=== PATIENT | female | born 2000 | race Caucasian/White ===

== ENCOUNTER 2021-12-27 08:32 | Emergency (ER) | payer OTHER ==
[~2021-12-27] VITALS: Ht 157.5 cm; Wt 56.7 kg
[~2021-12-27 08:32] MED LIST: IBUPROFEN100 MG/5 M PO
== END 2021-12-27 09:33 | disposition home or self-care (01) ==
LOC: ED 08:32
DX: O9A.212 Injury, poisoning and certain other consequences of external causes complicating pregnancy, second trimester (principal); S39.92XA Unspecified injury of lower back, initial encounter; Z3A.18 18 weeks gestation of pregnancy; W10.9XXA Fall (on) (from) unspecified stairs and steps, initial encounter
CPT/HCPCS: 99283

== ENCOUNTER 2022-04-08 00:21 | Inpatient (IN) | payer OTHER ==
--- NOTE | 2022-04-08 03:17 | NUR ---
0233-called life flight for weather check to [facility]. unable to fly at this time d/t weather. will perform hourly checks and keep updated. 0253-still unable to fly at this time d/t weather. Dr. Sheffield updated. Still waiting for bed at [facility]. 0302-bed confimred at [facility], called [facility] for transfer.
== END 2022-04-08 03:45 | disposition short-term general hospital (02) | DRG 833 ==
LOC: FBCO 00:21 → FBC 00:22 → FBCO 00:22 → FBC 02:52
PROVIDERS: ADMIT Obstetrics & Gynecology; ATTEND Obstetrics & Gynecology
DX: O60.03 Preterm labor without delivery, third trimester (principal); Z3A.33 33 weeks gestation of pregnancy; Z67.40 Type O blood, Rh positive; Z20.822 Contact with and (suspected) exposure to COVID-19
CPT/HCPCS: 81001; 87502; J0702; J3105; J3475; J7121; U0003

== ENCOUNTER 2022-05-24 13:25 | Inpatient (IN) | payer OTHER ==
--- NOTE | 2022-05-24 18:10 | PR ---
[facility] [address] [facility] [place], [place] [address] Signed Progress Notes IP Datetime Report Generated by CPN: 05/24/2022 18:10 PROGRESS NOTES: [id number] Impression: Normal Progression of Labor Procedures: Artificial ROM Plan: Anticipate Vaginal Delivery VITAL SIGNS: [id number] Vital Signs: Reviewed; Within Normal Limits EXAM: [id number] Dilatation: 4.0 Effacement: 80 Station: -2 Contractions: every 1-3 minutes MEMBRANES: [id number] Membranes Status: Ruptured ROM Note: no fluid noted at perineum. Comments: Possible small abruption, but no evidenc of distress. Will follow closely. FETUS A: [id number] FHR Baseline: 130 Variability: Moderate 6-25bpm Accelerations: 15X15 Presentation: Vertex FETUS B: [id number] Signing Physician: Edwin Christiansen MD Copies: ~ *Electronically Signed* 05/24/22 1810 EDWIN CHRISTIANSEN MD PATIENT NAME: ERIC GALLOWAY [facility] PROGRESS NOTE DATE OF : 00 PHYSICIAN: EDWIN CHRISTIANSEN MD RPT #: [id number] REPORT IS CONFIDENTIAL AND NOT TO BE RELEASED WITHOUT AUTHORIZATION
--- NOTE | 2022-05-24 21:14 | PR ---
[facility] [address] [facility] [place], [place] [address] Signed Progress Notes IP Datetime Report Generated by CPN: 05/24/2022 21:14 PROGRESS NOTES: [id number] Impression: Normal Progression of Labor Procedures: Artificial ROM Plan: Continue Present Management; Anticipate Vaginal Delivery VITAL SIGNS: [id number] Vital Signs: Reviewed; Within Normal Limits EXAM: [id number] Dilatation: 9.0 Effacement: 95 Station: 1 Contractions: every 1-3 minutes MEMBRANES: [id number] Membranes Status: Ruptured ROM Note: no fluid noted at perineum. Comments: Comfortable after redose, making steady progress. Continue monitoring. FETUS A: [id number] FHR Baseline: 130 Variability: Moderate 6-25bpm Accelerations: 15X15 Presentation: Vertex FETUS B: [id number] Signing Physician: Sterling Christiansen MD Copies: ~ *Electronically Signed* 05/24/222113 STERLING CHRISTIANSEN MD PATIENT NAME: ERIC GALLOWAY [place] PROGRESS NOTE DATE OF : 00 PHYSICIAN: STERLING CHRISTIANSEN MD RPT #: [id number] REPORT IS CONFIDENTIAL AND NOT TO BE RELEASED WITHOUT AUTHORIZATION
--- NOTE | 2022-05-25 00:23 | PR ---
[facility] [address] [facility] [place], [place] [address] Signed Progress Notes IP Datetime Report Generated by CPN: 05/25/2022 00:23 PROGRESS NOTES: [id number] Impression: Normal Progression of Labor Procedures: Artificial ROM Plan: Continue Present Management; Anticipate Vaginal Delivery VITAL SIGNS: [id number] Vital Signs: Reviewed; Within Normal Limits EXAM: [id number] Dilatation: 9.5 Effacement: 95 Station: 1 Contractions: every 1-3 minutes MEMBRANES: [id number] Membranes Status: Ruptured ROM Note: no fluid noted at perineum. Comments: Pushing for about 1 hour, pushing well. Continue. FETUS A: [id number] FHR Baseline: 130 Variability: Moderate 6-25bpm Accelerations: 15X15 Presentation: Vertex FETUS B: [id number] Signing Physician: Sterling Christiansen MD Copies: ~ *Electronically Signed* 05/25/22 0023 STERLING CHRISTIANSEN MD PATIENT NAME: ERIC GALLOWAY [place] PROGRESS NOTE DATE OF : 00 PHYSICIAN: STERLING HCRISTIANSEN MD RPT #: [id number] REPORT IS CONFIDENTIAL AND NOT TO BE RELEASED WITHOUT AUTHORIZATION
--- NOTE | 2022-05-25 01:45 | PR ---
[facility] [address] [facility] [place] [address] Signed Progress Notes IP Datetime Report Generated by CPN: 05/25/2022 01:45 PROGRESS NOTES: [id number] Impression: Normal Progression of Labor Procedures: Artificial ROM Plan: Continue Present Management VITAL SIGNS: [id number] Vital Signs: Reviewed; Within Normal Limits EXAM: [id number] Dilatation: 9.5 Effacement: 95 Station: 1 Contractions: every 1-3 minutes MEMBRANES: [id number] Membranes Status: Ruptured ROM Note: no fluid noted at perineum. Comments: Pushing well, getting more uncomfortable Encouraged to continue pushing. FETUS A: [id number] FHR Baseline: 130 Variability: Moderate 6-25bpm Accelerations: 15X15 Presentation: Vertex FETUS B: [id number] Signing Physician: Sterling Christiansen MD Copies: ~ *Electronically Signed* 05/25/22 0145 STERLING CHRISTIANSEN MD PATIENT NAME: ERIC GALLOWAY [place] PROGRESS NOTE DATE OF : 00 PHYSICIAN: STERLING CHRISTIANSEN MD RPT #: [id number] REPORT IS CONFIDENTIAL AND NOT TO BE RELEASED WITHOUT AUTHORIZATION
--- NOTE | 2022-05-25 02:10 | PR ---
[facility] [address] [facility] [place], [place] [address] Signed Progress Notes IP Datetime Report Generated by CPN: 05/25/2022 02:10 PROGRESS NOTES: [id number] Impression: Normal Progression of Labor Procedures: Artificial ROM Plan: Continue Present Management VITAL SIGNS: [id number] Vital Signs: Reviewed; Within Normal Limits EXAM: [id number] Dilatation: 9.5 Effacement: 95 Station: 1 Contractions: every 1-3 minutes MEMBRANES: [id number] Membranes Status: Ruptured ROM Note: no fluid noted at perineum. Comments: Continuing to push. More comfortable qafter small redose. FETUS A: [id number] FHR Baseline: 130 Variability: Moderate 6-25bpm Accelerations: 15X15 Presentation: Vertex FETUS B: [id number] Signing Physician: Sterling Christiansen MD Copies: ~ *Electronically Signed* 05/25/22209 STERLING CHRISTIANSEN MD PATIENT NAME: ERIC GALLOWAY [place] PROGRESS NOTE DATE OF : 00 PHYSICIAN: STERLING CHRISTIANSEN MD RPT #: [id number] REPORT IS CONFIDENTIAL AND NOT TO BE RELEASED WITHOUT AUTHORIZATION
--- NOTE | 2022-05-25 02:39 | PR ---
[facility] [address] [facility] [place], [place] [address] Signed Progress Notes IP Datetime Report Generated by CPN: 05/25/2022 02:39 PROGRESS NOTES: [id number] Impression: Normal Progression of Labor Other Impressions: Slow Progress Procedures: Artificial ROM Plan: Continue Present Management VITAL SIGNS: [id number] Vital Signs: Reviewed; Within Normal Limits EXAM: P1353529 Dilatation: 9.5 Effacement: 95 Station: 1 Contractions: every 1-3 minutes MEMBRANES: [id number] Membranes Status: Ruptured ROM Note: no fluid noted at perineum. Comments: Pushing for 3 hours now, getting more caput. Comfortable with Epidural. Will continue pushing. FETUS A: [id number] FHR Baseline: 130 Variability: Moderate 6-25bpm Accelerations: 15X15 Presentation: Vertex FETUS B: [id number] Signing Physician: Edwin Christiansen MD Copies: ~ *Electronically Signed* 05/25/22 0239 EDWIN CHRISTIANSEN MD PATIENT NAME: ERIC GALLOWAY [facility] PROGRESS NOTE DATE OF : 00 PHYSICIAN: EDWIN CHRISTIANSEN MD RPT #: [id number] REPORT IS CONFIDENTIAL AND NOT TO BE RELEASED WITHOUT AUTHORIZATION
--- NOTE | 2022-05-25 12:53 | PR ---
[facility] [address] [facility] [place] [address] Signed PP Progress Notes Datetime Report Generated by CPN: 05/25/2022 12:52 SUBJECTIVE: [id number] Pain: Within Normal Limits Nausea/Vomiting: Denies Vital Signs: [id number] Vital Signs: Reviewed; Within Normal Limits Abdomen/Uterus: Normal Lochia: Normal Extremities: Normal IMPRESSION/PLAN/PROCEDURES: [id number] Impression: Normal Progression Plan: Continue Present Management Procedures: None Progress Notes: Doing well, without complaint, up moving, voiding without difficult. No bowel movement. Signing Physician: Sterling Christiansen MD Copies: ~ *Electronically Signed* 05/25/22 1252 STERLING CHRISTIANSEN MD PATIENT NAME: ERIC GALLOWAY [place] PROGRESS NOTE DATE OF : 00 PHYSICIAN: STERLING CHRISTIANSEN MD RPT #: [id number] REPORT IS CONFIDENTIAL AND NOT TO BE RELEASED WITHOUT AUTHORIZATION
--- NOTE | 2022-05-26 11:39 | PR ---
[facility] [address] [place] [address] Signed PP Progress Notes Datetime Report Generated by CPN: 05/26/2022 11:39 SUBJECTIVE: [id number] Pain: Within Normal Limits Nausea/Vomiting: Denies Vital Signs: [id number] Vital Signs: Reviewed; Within Normal Limits Notable Details: PP Hgb/Hct = 7.4/23.0 Abdomen/Uterus: Normal Lochia: Normal Extremities: Normal IMPRESSION/PLAN/PROCEDURES: [id number] Impression: Normal Progression Plan: Discharge Procedures: None Progress Notes: Doing well, without complaint, bowel movement x2 without difficulty, needing only Ibuprofen for pain, ready to go home. Signing Physician: Edwin Christiansen MD Copies: ~ *Electronically Signed* 05/26/22 1139 EDWIN CHRISTIANSEN MD PATIENT NAME: ERIC GALLOWAY PROGRESS NOTE DATE OF : 00 PHYSICIAN: EDWIN CHRISTIANSEN MD RPT #: [id number] REPORT IS CONFIDENTIAL AND NOT TO BE RELEASED WITHOUT AUTHORIZATION
== END 2022-05-26 12:55 | disposition home or self-care (01) | DRG 768 ==
LOC: FBCO 13:25 → FBC 15:20
PROVIDERS: ADMIT General Practice; ATTEND General Practice
PROC: 10E0XZZ Delivery of Products of Conception, External Approach (ICD-10-PCS; principal; 2022-05-24)
PROC: 0DQP0ZZ Repair Rectum, Open Approach (ICD-10-PCS; 2022-05-24)
PROC: 0UQMXZZ Repair Vulva, External Approach (ICD-10-PCS; 2022-05-24)
PROC: 10907ZC Drainage of Amniotic Fluid, Therapeutic from Products of Conception, Via Natural or Artificial Opening (ICD-10-PCS; 2022-05-24)
PROC: 00HU33Z Insertion of Infusion Device into Spinal Canal, Percutaneous Approach (ICD-10-PCS; 2022-05-24)
PROC: 3E0R3BZ Introduction of Anesthetic Agent into Spinal Canal, Percutaneous Approach (ICD-10-PCS; 2022-05-24)
DX: O48.0 Post-term pregnancy (principal); Z37.0 Single live birth; O70.3 Fourth degree perineal laceration during delivery; Z3A.40 40 weeks gestation of pregnancy; Z67.40 Type O blood, Rh positive; O99.03 Anemia complicating the puerperium
CPT/HCPCS: 01960; 36415; 59025; 85027; 86787; 86850; 86900; 86901; A9270; G0463; J2590

== ENCOUNTER 2024-08-13 09:39 | Inpatient (IN) | payer OTHER ==
[~2024-08-13] VITALS: Ht 157.5 cm; Wt 74.8 kg
--- NOTE | ~2024-08-13 | OR ---
[facility] [address] [place], [place] [address] Draft DATE OF OPERATION: 08/23/2024 SURGEON: Lyn Jensen MD PREOPERATIVE DIAGNOSES: 1. Term . 2. Previous difficult delivery. 3. Desire for primary section. POSTOPERATIVE DIAGNOSES: 1. Term . 2. Previous difficult delivery. 3. Desire for primary section. 4. Delivered. PROCEDURE: Primary section with low segment transverse uterine incision. ANESTHESIA: Spinal. ESTIMATED BLOOD LOSS: 600 mL. DRAINS: Suggs catheter. INDICATIONS AND FINDINGS: The patient is a 24-year-old female, 2, para 1, admitted at 39 weeks for primary section. Her first was complicated by a fourth-degree laceration at delivery. has otherwise been negative. At the time of surgery, she was delivered of a little girl via lower segment transverse uterine incision from the ROT position with Apgars of 9 and 9 and weight of 7 pounds 10 ounces. Uterus, tubes, ovaries, and placenta appeared normal. DESCRIPTION OF PROCEDURE: The patient was prepped and draped in the supine position. A Pfannenstiel skin incision was made and carried down through the fascia. The fascial incision was extended laterally. The inferior and superior fascial flaps were created. There were bleeding points superiorly on the muscle as well as on the fascial side and these were controlled PATIENT NAME: ERIC GALLOWAY [facility] REPORT DATE OF : 00 REPORT #: [id number] PHYSICIAN: LYN JENSEN MD PCP: TEJAL MAZARIEGOS REPORT IS CONFIDENTIAL AND NOT TO BE RELEASED WITHOUT AUTHORIZATION [facility] [address] [place], [place] [address] Draft with cautery as well as a [id number] of 2-0 chromic. The peritoneum was opened bluntly and the incision extended bluntly. The Bradley retractor was then placed and the uterine incision was made at the upper aspect of the peritoneal reflection. The baby was delivered with the above findings and handed out to the pediatric staff in attendance. The placenta was expressed and the uterus explored, assuring no remaining fragments. The edges of the incision were identified. The uterus was closed in 2 layers using 0 Monocryl. The first layer was a running locking stitch and the second was a vertical imbricating stitch. An additional [id number]-jq-bkwzl was required near the patient's right angle for control of bleeding. The abdomen was then irrigated, inspected and bleeding points on the peritoneal edges were controlled with cautery. The retractor was removed and the peritoneum identified. The peritoneum was closed with a running suture of 3-0 Vicryl. The muscles were brought together with interrupted sutures of 0-Vicryl. Bleeding points were controlled with cautery. This layer was irrigated, inspected and good hemostasis was noted; however, because of the initial difficulty with bleeding, Toney was placed over the muscles to further aid in hemostasis. The fascia was then closed from each angle to the midline with a running suture of 0-Vicryl. The subcu space was irrigated and inspected and bleeding points controlled with cautery. The deep space was closed with a running suture of 3-0 Vicryl. The skin was closed with beto. All sponge and needle counts were correct. She tolerated the procedure well and was taken to the recovery room in good condition. MD JASON Madrid/DANIKA /[id number] Copies: ~ PATIENT NAME: ERIC GALLOWAY [facility] REPORT DATE OF : 00 REPORT #: [id number] PHYSICIAN: LYN JENSEN MD PCP: TEJAL MAZARIEGOS REPORT IS CONFIDENTIAL AND NOT TO BE RELEASED WITHOUT AUTHORIZATION
[2024-08-23 05:35] LABS: HEMATOCRIT 35.2 % (35.0-50.0); HEMOGLOBIN 12.2 g/dL (12.0-18.0); MCH 29.8 (27-36); MCHC 34.7 g/dl (30-36); MCV 85.9 fl (81-99); RBC 4.09 M/ul (4.3-5.7); RDW 14.1 (10.5-15.0)
[2024-08-23] MEDS ORDERED: SOD+POT BICARB/CITRIC ACID 2 EA TABLET.EFF PO ONE (05:45)
[2024-08-23 06:22] LABS: ABO O; ANTIBODY SCREEN NEGATIVE; RH POSITIVE
[2024-08-23] MEDS ORDERED: BUPIVACAINE 0.75% IN DEXTROSE 2 ML AMP ONE (06:31)
[2024-08-23] MEDS ORDERED: LIDOCAINE HCL 2% 5 ML SDV ONE (06:31)
[2024-08-23] MEDS ORDERED: OXYTOCIN 10 UNITS/ML VIAL ONE (06:32)
[2024-08-23] MEDS ORDERED: ondansetron HCL 4 MG/2 ML VIAL ONE (06:32)
[2024-08-23] MEDS ORDERED: MORPHINE SULFATE 1 MG/ML VIAL ONE (06:33)
[2024-08-23] MEDS ORDERED: ePHEDrine sulfate 50 MG/ML AMP ONE (06:33)
[2024-08-23 06:35] LABS: AMPHETAMINES, URINE NEGATIVE (NEGATIVE); BARBITURATES, URINE NEGATIVE (NEGATIVE); BENZODIAZEPINE, URINE NEGATIVE (NEGATIVE); BUPRENORPHINE, URINE NEGATIVE (NEGATIVE); CANNABINOID, URINE NEGATIVE (NEGATIVE); COCAINE, URINE NEGATIVE (NEGATIVE); ECSTASY, URINE NEGATIVE (NEGATIVE); FENTANYL, URINE NEGATIVE (NEGATIVE); METHADONE, URINE NEGATIVE (NEGATIVE); OPIATES, URINE NEGATIVE (NEGATIVE); OXYCODONE, URINE NEGATIVE (NEGATIVE); PHENCYCLIDINE, URINE NEGATIVE (NEGATIVE)
[2024-08-23] MEDS ORDERED: SODIUM CHLORIDE 0.9% 40 ML IV ONE (06:35)
[2024-08-23] MEDS ORDERED: Ropivacaine HCl 0.5% 30 ML VIAL ONE (06:35)
[2024-08-23] MEDS ORDERED: CEFAZOLIN SODIUM 2 GM/20 ML SYR IV SCH (07:00)
[2024-08-23] MEDS ORDERED: LACTATED RINGER'S 3,000 ML IV ONE (07:25)
[2024-08-23] MEDS ORDERED: LACTATED RINGER'S 2,000 ML IV PRN (07:30)
[2024-08-23] MEDS ORDERED: LACTATED RINGER'S 1,000 ML IV SCH ×2 (07:30→08:33)
[2024-08-23] MEDS ORDERED: TRANEXAMIC ACID 1,000 MG/10 ML AMP ONE (08:01)
[2024-08-23] MEDS ORDERED: MORPHINE SULFATE 4 MG/ML VIAL IV PRN (08:15)
[2024-08-23] MEDS ORDERED: droPERidol 5 MG/2 ML VIAL IV PRN (08:15)
[2024-08-23] MEDS ORDERED: diphenhydrAMINE HCL 50 MG/ML VIAL IV PRN (08:15)
[2024-08-23] MEDS ORDERED: KETOROLAC TROMETHAMINE 30 MG/ML VIAL IV PRN (08:15)
[2024-08-23] MEDS ORDERED: MORPHINE SULFATE 10 MG/ML VIAL IV PRN (08:15)
[2024-08-23] MEDS ORDERED: diphenhydrAMINE HCL 25 MG CAP PO PRN (08:15)
[2024-08-23] MEDS ORDERED: IBLOOD GLUCOSE TEST STRIP 1 EA TEST VI PRN (08:15)
[2024-08-23] MEDS ORDERED: fentaNYL citrate 50 MCG/ML SDV IV PRN (08:15)
[2024-08-23] MEDS ORDERED: NALOXONE HCL 0.4 MG SYR IV PRN ×2 (08:15)
[2024-08-23] MEDS ORDERED: PROCHLORPERAZINE EDISYLATE 10 MG/2 ML VIAL IV PRN ×3 (08:15→08:30)
[2024-08-23] MEDS ORDERED: ondansetron HCL 4 MG/2 ML VIAL IV PRN ×3 (08:15→08:30)
[2024-08-23] MEDS ORDERED: METOCLOPRAMIDE HCL 10 MG/2 ML SDV IV PRN ×3 (08:15→08:30)
[2024-08-23] MEDS ORDERED: PROMETHAZINE HCL 25 MG SUPP PR PRN (08:30)
[2024-08-23] MEDS ORDERED: PROMETHAZINE HCL 25 MG TAB PO PRN (08:30)
[2024-08-23] MEDS ORDERED: OXYTOCIN/0.9 % SODIUM CHLORIDE 500 ML IV SCH (08:30)
[2024-08-23] MEDS ORDERED: LIDOCAINE 2% VISCOUS 6 ML SYR TOP ONE (08:30)
[2024-08-23] MEDS ORDERED: OXYCODONE HCL 5 MG TAB PO PRN (08:30)
[2024-08-23] MEDS ORDERED: bisacodyL 10 MG SUPP PR PRN (08:30)
--- NOTE | 2024-08-23 08:44 | NUR ---
08/23/24 0844 Mariela Kemp HOB IS ELEVATED TO 30 DEGREES. PATIENT REPORTS "DIZZINESS" WITH ALL MOVEMENT. SHE DENIES NAUSEA.
[2024-08-23] MEDS ORDERED: ACETAMINOPHEN 500 MG TAB PO SCH (08:45)
[2024-08-23 08:58] VITALS: BP 113/55
[2024-08-23] MEDS ORDERED: SENNOSIDES/DOCUSATE 1 EA TAB PO SCH (09:00)
[2024-08-23] MEDS ORDERED: SIMETHICONE 125 MG TABLET CHEWABLE PO SCH (11:00)
[2024-08-23] MEDS ORDERED: KETOROLAC TROMETHAMINE 30 MG/ML VIAL IV SCH (14:00)
[2024-08-24] MEDS ORDERED: KETOROLAC TROMETHAMINE 30 MG/ML VIAL IV SCH
[2024-08-24 05:21] LABS: HEMATOCRIT 25.8 % (35.0-50.0); HEMOGLOBIN 8.7 g/dL (12.0-18.0); MCH 29.7 (27-36); MCHC 33.9 g/dl (30-36); MCV 87.8 fl (81-99); RBC 2.93 M/ul (4.3-5.7); RDW 14.4 (10.5-15.0)
[2024-08-24] MEDS ORDERED: CEFAZOLIN SODIUM 2 GM/20 ML SYR IV SCH (07:00)
[2024-08-24] MEDS ORDERED: SOD+POT BICARB/CITRIC ACID 2 EA TABLET.EFF PO SCH (07:00)
[2024-08-24] MEDS ORDERED: IBUPROFEN 800 MG TAB PO SCH ×3 (13:00→20:00)
== END 2024-08-25 12:45 | disposition home or self-care (01) | DRG 788 ==
LOC: FBC 08-23 04:59
PROVIDERS: ADMIT Obstetrics & Gynecology; ATTEND Obstetrics & Gynecology
PROC: 0DQP0ZZ Repair Rectum, Open Approach (ICD-10-PCS; 2024-08-23)
PROC: 10D00Z1 Extraction of Products of Conception, Low, Open Approach (ICD-10-PCS; principal; 2024-08-23 07:30)
DX: O70.3 Fourth degree perineal laceration during delivery (principal); Z3A.39 39 weeks gestation of pregnancy; Z37.0 Single live birth; Z88.1 Allergy status to other antibiotic agents
CPT/HCPCS: 01961; 36415; 76942; 80307; 85027; 86850; 86900; 86901; A9270; J0690; J1885; J2003; J2274; J2405; J2590; J2795; J7121

== ENCOUNTER 2024-08-30 16:27 | Emergency (ER) | payer OTHER ==
[~2024-08-30] VITALS: Ht 157.5 cm; Wt 65.2 kg
[2024-08-30] MEDS ORDERED: ACETAMINOPHEN500 MG PO (16:40)
[2024-08-30] MEDS ORDERED: OXYCODONE HCL5 MG PO (16:40)
[2024-08-30] MEDS ORDERED: IBUPROFEN800 MG PO (16:40)
[2024-08-30] MEDS ORDERED: ondansetron HCL 4 MG/2 ML VIAL IV ONE (17:00)
[2024-08-30] MEDS ORDERED: SODIUM CHLORIDE 0.9% 500 ML IV ONE (17:00)
[2024-08-30] MEDS ORDERED: REGLAN10 MG PO (17:11)
[2024-08-30 17:13] VITALS: BP 131/74
== END 2024-08-30 17:17 | disposition home or self-care (01) ==
LOC: ED 16:27
DX: O90.89 Other complications of the puerperium, not elsewhere classified (principal); R11.0 Nausea; Z98.890 Other specified postprocedural states
CPT/HCPCS: 80053; 83735; 85025; 99283